=== PATIENT | female | born 1975 | race Caucasian/White ===

== ENCOUNTER 2016-11-12 00:20 | Emergency (ER) | payer SELFPAY ==
[~2016-11-12] VITALS: Ht 165.1 cm; Wt 111.6 kg
[~2016-11-12 00:20] MED LIST: ALBUTEROL SUL0.083 % IN; DOXYCYCL HYC100 MG PO; FLEXERIL PO; LORTAB 5/3255 MG PO; MEDDOSEPAK PO; PROVENTIL0.083 % IN; ULTRAM50 M1 PO; ULTRAM50 MG PO; VENTOLIN HFA IN; ZITHROMAX250 MG PO; ZPAK PO; [UNRECOGNIZED DRUG - OTHER] TOP; no home meds
[2016-11-12 01:32] LABS: HEMOGLOBIN 14.1 g/dl (12.0-16.0); IMMATURE GRANULOCYTES 0.5 % (0.0-1.0); MEAN CELL VOLUME 76.5 fL CALC (80.0-100.0); MEAN CORPUSCULAR HGB CONC 31.3 g/L CALC (32.0-36.0); NEUT# 9.23 thou/uL (2.00-7.15); RED BLOOD COUNT 5.88 mill/uL (4.20-5.60); RED CELL DISTRI WIDTH 16.2 % (11.5-15.5)
[2016-11-12 01:33] LABS: URINE BILIRUBIN - DIPSTICK NEGATIVE (NEGATIVE); URINE BLOOD DIPSTICK NEGATIVE (NEGATIVE); URINE CLARITY CLEAR; URINE COLOR YELLOW; URINE GLUCOSE - DIPSTICK NEGATIVE (NEGATIVE); URINE KETONE TRACE mg/dL (NEGATIVE); URINE LEUK ESTERASE NEGATIVE (NEGATIVE); URINE NITRITE - DIPSTICK NEGATIVE (Negative); URINE PROTEIN - DIPSTICK TRACE mg/dL (NEG-TRACE); URINE SPECIFIC GRAVITY >=1.030; URINE UROBILINOGEN - DIPSTICK 0.2 E.U./dL (0.2)
[2016-11-12 01:48] LABS: ALBUMIN 4.7 g/dL (3.2-5.0); ALKALINE PHOSPHATASE 94 u/l (38-126); AMYLASE 31 u/l (30-110); ANION GAP 17 (6-22 (CALC)); BILIRUBIN, TOTAL 0.4 mg/dL (0.0-1.4); BUN 6 mg/dL (7-17); BUN/CREATININE RATIO 8 (12-20 (CALC)); CARBON DIOXIDE 28 mmol/l (22-30); CHLORIDE 101 mmol/l (95-108); CREATININE 0.8 mg/dL (0.5-1.0); GFR > 60 ML/MIN (>=60 (CALC)); GFR FOR AFR.AMER. > 60 ML/MIN (>=60 (CALC)); GLUCOSE 92 mg/dL (65-105); LIPASE 55 u/l (23-300); POTASSIUM 3.9 mmol/l (3.5-5.1); SGOT/AST 29 u/l (14-36); SGPT/ALT 35 u/l (9-52); SODIUM 142 mmol/l (137-146); TOTAL PROTEIN 7.9 g/dL (6.3-8.2)
[2016-11-12] MEDS ORDERED: ZOFRAN ODT4 MG PO (03:05)
[2016-11-12] MEDS ORDERED: CLARITHROMYC500 M2 PO (03:05)
[2016-11-12] MEDS ORDERED: METRONIDAZOL500 MG PO (03:05)
[2016-11-12] MEDS ORDERED: PREVACID30 M2 PO (03:05)
[2016-11-12 03:50] VITALS: BP 112/74
== END 2016-11-12 03:54 | disposition home or self-care (01) | DRG 392 ==
LOC: ED 00:20
PROVIDERS: Emergency Medicine
DX: R10.13 Epigastric pain (principal); E66.01 Morbid (severe) obesity due to excess calories; K27.9 Peptic ulcer, site unspecified, unspecified as acute or chronic, without hemorrhage or perforation; K52.9 Noninfective gastroenteritis and colitis, unspecified; J44.9 Chronic obstructive pulmonary disease, unspecified; F17.210 Nicotine dependence, cigarettes, uncomplicated
CPT/HCPCS: J1956; Q9967; S0164

== ENCOUNTER 2017-03-01 15:20 | Emergency (ER) | payer SELFPAY ==
[~2017-03-01] VITALS: Ht 165.1 cm; Wt 105.0 kg
[~2017-03-01 15:20] MED LIST changes: +CLARITHROMYC500 M2 PO; +METRONIDAZOL500 MG PO; +PREVACID30 M2 PO; +ZOFRAN ODT4 MG PO
[2017-03-01] MEDS ORDERED: PREDNISONE50 MG PO (15:44)
[2017-03-01] MEDS ORDERED: ZITHROMAX250 MG PO (15:44)
[2017-03-01] MEDS ORDERED: TESSALON PER100 MG PO (15:44)
[2017-03-01] MEDS ORDERED: VENTOLIN HFA IN (15:44)
[2017-03-01 16:03] VITALS: BP 154/93
== END 2017-03-01 16:09 | disposition home or self-care (01) | DRG 192 ==
LOC: ED 15:20
DX: J44.9 Chronic obstructive pulmonary disease, unspecified (principal); E66.01 Morbid (severe) obesity due to excess calories; E27.9 Disorder of adrenal gland, unspecified; F17.210 Nicotine dependence, cigarettes, uncomplicated

== ENCOUNTER 2017-09-21 00:44 | Emergency (ER) | payer SELFPAY ==
[~2017-09-21] VITALS: Ht 165.1 cm; Wt 113.0 kg
[~2017-09-21 00:44] MED LIST changes: +PREDNISONE50 MG PO; +TESSALON PER100 MG PO
[2017-09-21 01:27] LABS: INFLUENZA A NONE DETECTED (NONE DETECT); INFLUENZA B NONE DETECTED (NONE DETECT)
[2017-09-21 04:41] VITALS: BP 152/86
== END 2017-09-21 04:35 | disposition home or self-care (01) | DRG 203 ==
LOC: ED 00:44
PROVIDERS: Emergency Medicine
DX: J40 Bronchitis, not specified as acute or chronic (principal); F17.210 Nicotine dependence, cigarettes, uncomplicated; R05 Cough; R09.89 Other specified symptoms and signs involving the circulatory and respiratory systems

== ENCOUNTER 2018-06-30 17:05 | Emergency (ER) | payer SELFPAY ==
[~2018-06-30] VITALS: Ht 165.1 cm; Wt 105.0 kg
[2018-06-30 18:22] VITALS: BP 148/95
[2018-06-30] MEDS ORDERED: PREDNISONE20 MG PO (18:36)
== END 2018-06-30 18:45 | disposition home or self-care (01) | DRG 918 ==
LOC: ED 17:05
DX: T63.481A Toxic effect of venom of other arthropod, accidental (unintentional), initial encounter (principal); R22.0 Localized swelling, mass and lump, head; F17.210 Nicotine dependence, cigarettes, uncomplicated

== ENCOUNTER 2019-07-02 | Emergency (ER) | payer OTHER ==
[~2019-07-02] MED LIST changes: +PREDNISONE20 MG PO
[2019-07-02 12:26] LABS: GFR > 60 ML/MIN (>=60 (CALC)); GFR FOR AFR.AMER. > 60 ML/MIN (>=60 (CALC))
[2019-07-02 13:48] LABS: HEMATOCRIT 41.5 % (37.0-47.0); HEMOGLOBIN 12.9 g/dl (12.0-16.0); IMMATURE GRANULOCYTES 0.5 % (0.0-5.0); MEAN CELL VOLUME 74.9 fL CALC (80.0-100.0); MEAN CORPUSCULAR HGB 23.3 pG CALC (26.0-32.0); MEAN CORPUSCULAR HGB CONC 31.1 g/L CALC (32.0-36.0); NEUT# 9.72 thou/uL (2.00-7.15); RED BLOOD COUNT 5.54 mill/uL (4.20-5.60); RED CELL DISTRI WIDTH 15.9 % (11.5-15.5)
[2019-07-02 14:06] LABS: ALKALINE PHOSPHATASE 103 u/l (38-126); ANION GAP 12 (6-22 (CALC)); BILIRUBIN, TOTAL 0.3 mg/dL (0.0-1.4); BUN 10 mg/dL (7-17); BUN/CREATININE RATIO 17 (12-20 (CALC)); CARBON DIOXIDE 25 mmol/l (22-30); CHLORIDE 103 mmol/l (95-108); CREATININE 0.6 mg/dL (0.5-1.0); GFR > 60 ML/MIN (>=60 (CALC)); GFR FOR AFR.AMER. > 60 ML/MIN (>=60 (CALC)); POTASSIUM 4.1 mmol/l (3.5-5.1); SGOT/AST 27 u/l (14-36); SODIUM 135 mmol/l (137-146); TOTAL PROTEIN 7.4 g/dL (6.3-8.2)
[2019-07-02 14:51] LABS: URINE BILIRUBIN - DIPSTICK NEGATIVE (NEGATIVE); URINE BLOOD DIPSTICK NEGATIVE (NEGATIVE); URINE COLOR YELLOW; URINE GLUCOSE - DIPSTICK NEGATIVE (NEGATIVE); URINE KETONE NEGATIVE (NEGATIVE); URINE LEUK ESTERASE NEGATIVE (NEGATIVE); URINE NITRITE - DIPSTICK NEGATIVE (Negative); URINE PROTEIN - DIPSTICK NEGATIVE (NEG-TRACE); URINE UROBILINOGEN - DIPSTICK 0.2 E.U./dL (0.2)
== END 2019-07-02 14:37 | disposition home or self-care (01) | DRG 605 ==
PROVIDERS: Family Medicine
DX: S40.812A Abrasion of left upper arm, initial encounter (principal); R10.32 Left lower quadrant pain; M54.5 Low back pain; F17.210 Nicotine dependence, cigarettes, uncomplicated; M25.552 Pain in left hip; V89.2XXA Person injured in unspecified motor-vehicle accident, traffic, initial encounter
CPT/HCPCS: Q9967

== ENCOUNTER 2021-03-16 17:00 | Emergency (ER) | payer BC ==
[~2021-03-16] VITALS: Ht 165.1 cm; Wt 160.0 kg
[2021-03-16 17:45] LABS: IMMATURE GRANULOCYTES 0.5 % (0.0-5.0); MEAN CORPUSCULAR HGB 26.5 pG CALC (26.0-32.0); MEAN CORPUSCULAR HGB CONC 33.1 g/dL CAL (32.0-36.0); NEUT# 3.24 thou/uL (2.00-7.15); RED BLOOD COUNT 3.47 mill/uL (4.20-5.60); RED CELL DISTRI WIDTH 21.9 % (11.5-15.5)
[2021-03-16 17:47] LABS: HEMATOCRIT 27.8 % (37.0-47.0); HEMOGLOBIN 9.2 g/dl (12.0-16.0); MEAN CELL VOLUME 80.1 fL CALC (80.0-100.0)
[2021-03-16 17:57] LABS: ALBUMIN 4.1 g/dL (3.2-5.0); ALKALINE PHOSPHATASE 89 u/l (38-126); AMYLASE 52 u/l (30-110); BUN 7 mg/dL (7-17); BUN/CREATININE RATIO 9 (12-20 (CALC)); CARBON DIOXIDE 26 mmol/l (22-30); CHLORIDE 101 mmol/l (95-108); CREATININE 0.7 mg/dL (0.5-1.0); GFR > 60 ML/MIN (>=60 (CALC)); GFR FOR AFR.AMER. > 60 ML/MIN (>=60 (CALC)); LIPASE 58 u/l (23-300); SGOT/AST 25 u/l (14-36); SODIUM 135 mmol/l (137-146); TOTAL PROTEIN 7.2 g/dL (6.3-8.2)
[2021-03-16 18:00] LABS: ANION GAP 11 (6-22 (CALC)); BILIRUBIN, TOTAL 0.6 mg/dL (0.0-1.4); POTASSIUM 3.1 mmol/l (3.5-5.1)
[2021-03-16 18:01] LABS: D-DIMER 1.49 mg/L (0.19-0.60)
[2021-03-16 18:08] LABS: MYOGLOBIN 30 ng/mL (0 - 62)
[2021-03-16 18:09] LABS: ACT PARTIAL THROMBO TIME 20.2 SECONDS (20.0-32.5); INTERNATIONAL NORMALIZED RATIO 0.9 RATIO (0.7-1.3); PROTHROMBIN TIME 9.9 SECONDS (9.0-12.5)
[2021-03-16 18:52] LABS: URINE BILIRUBIN - DIPSTICK NEGATIVE (NEGATIVE); URINE BLOOD DIPSTICK SMALL (NEGATIVE); URINE COLOR YELLOW; URINE GLUCOSE - DIPSTICK NEGATIVE (NEGATIVE); URINE KETONE NEGATIVE (NEGATIVE); URINE PROTEIN - DIPSTICK 30 mg/dL (NEG-TRACE); URINE UROBILINOGEN - DIPSTICK 0.2 E.U./dL (0.2)
[2021-03-16 18:54] LABS: URINE LEUK ESTERASE MODERATE (NEGATIVE); URINE NITRITE - DIPSTICK NEGATIVE (Negative)
[2021-03-16 19:02] LABS: URINE SQUAMOUS EPITHELIAL CELL FEW EPI/hpf (0-FEW); URINE WBC 20-50 WBC/hpf (0-5)
[2021-03-16 22:15] VITALS: BP 166/95
--- NOTE | 2021-03-18 08:15 | NUR ---
FINAL URINE CULTURE RESULTS SENT TO JOSY RUST AT [facility] FAX: [phone]
== END 2021-03-16 22:17 | disposition short-term general hospital (02) | DRG 313 ==
LOC: ED 17:00
DX: R07.9 Chest pain, unspecified (principal); N39.0 Urinary tract infection, site not specified; R79.89 Other specified abnormal findings of blood chemistry; E87.6 Hypokalemia; C51.9 Malignant neoplasm of vulva, unspecified; F17.200 Nicotine dependence, unspecified, uncomplicated; B96.1 Klebsiella pneumoniae [K. pneumoniae] as the cause of diseases classified elsewhere; Z95.828 Presence of other vascular implants and grafts; Z20.822 Contact with and (suspected) exposure to COVID-19
CPT/HCPCS: Q9967

== ENCOUNTER 2022-03-11 13:14 | Emergency (ER) | payer BC ==
[~2022-03-11] VITALS: Ht 165.1 cm; Wt 105.0 kg
[2022-03-11 13:29] VITALS: BP 144/98
[2022-03-11 14:01] VITALS: BP 114/65
[2022-03-11 14:33] VITALS: BP 130/77
[2022-03-11] MEDS ORDERED: BENADRYL25 M1 PO (14:44)
[2022-03-11] MEDS ORDERED: PREDNISONE20 MG PO (14:44)
[2022-03-11] MEDS ORDERED: EPIPEN 2-P0.3 MG/0.3 IM (14:44)
[2022-03-11 14:46] VITALS: BP 130/77
== END 2022-03-11 14:56 | disposition home or self-care (01) | DRG 607 ==
LOC: ED 13:14
DX: L50.0 Allergic urticaria (principal); F17.200 Nicotine dependence, unspecified, uncomplicated; Z85.44 Personal history of malignant neoplasm of other female genital organs; Z92.3 Personal history of irradiation; Z92.21 Personal history of antineoplastic chemotherapy; Z88.8 Allergy status to other drugs, medicaments and biological substances

== ENCOUNTER 2022-05-18 20:25 | Emergency (ER) | payer BC ==
[~2022-05-18] VITALS: Ht 165.1 cm; Wt 109.0 kg
[~2022-05-18 20:25] MED LIST changes: +BENADRYL25 M1 PO; +EPIPEN 2-P0.3 MG/0.3 IM
[2022-05-18 21:26] VITALS: BP 125/87
[2022-05-18 21:31] VITALS: BP 144/83
[2022-05-18 21:46] VITALS: BP 126/73
[2022-05-18 21:52] LABS: IMMATURE GRANULOCYTES 0.3 % (0.0-5.0); MEAN CELL VOLUME 79.9 fL CALC (80.0-100.0); MEAN CORPUSCULAR HGB 25.6 pG CALC (26.0-32.0); NEUT# 6.71 thou/uL (2.00-7.15); RED BLOOD COUNT 4.38 mill/uL (4.20-5.60); RED CELL DISTRI WIDTH 15.6 % (11.5-15.5)
[2022-05-18 21:53] LABS: HEMOGLOBIN 11.2 g/dl (12.0-16.0)
[2022-05-18 22:01] LABS: HCG SERUM/URINE (NEG/POS) NEGATIVE (NEGATIVE)
[2022-05-18 22:04] LABS: ALBUMIN 4.3 g/dL (3.2-5.0); ALKALINE PHOSPHATASE 88 u/l (38-126); BUN 12 mg/dL (7-17); BUN/CREATININE RATIO 14 (12-20 (CALC)); CARBON DIOXIDE 30 mmol/l (22-30); CHLORIDE 104 mmol/l (95-108); CREATININE 0.9 mg/dL (0.5-1.0); GFR FOR AFR.AMER. > 60 ML/MIN (>=60 (CALC)); GFR OTHER RACES > 60 ML/MIN (>=60 (CALC)); SGOT/AST 27 u/l (14-36); TOTAL PROTEIN 6.9 g/dL (6.3-8.2)
[2022-05-18 22:05] LABS: ANION GAP 13 (6-22 (CALC)); BILIRUBIN, TOTAL 0.1 mg/dL (0.0-1.4); POTASSIUM 3.8 mmol/l (3.5-5.1); SODIUM 143 mmol/l (137-146)
[2022-05-18 22:38] LABS: URINE BILIRUBIN - DIPSTICK NEGATIVE (NEGATIVE); URINE BLOOD DIPSTICK NEGATIVE (NEGATIVE); URINE COLOR YELLOW; URINE GLUCOSE - DIPSTICK NEGATIVE (NEGATIVE); URINE KETONE NEGATIVE (NEGATIVE); URINE LEUK ESTERASE NEGATIVE (NEGATIVE); URINE PROTEIN - DIPSTICK NEGATIVE (NEG-TRACE); URINE SPECIFIC GRAVITY >=1.030; URINE UROBILINOGEN - DIPSTICK 0.2 E.U./dL (0.2)
[2022-05-18 22:39] LABS: URINE NITRITE - DIPSTICK NEGATIVE (Negative)
[2022-05-18 23:37] VITALS: BP 126/73
== END 2022-05-18 23:49 | disposition home or self-care (01) | DRG 103 ==
LOC: ED 20:25
PROVIDERS: Family Medicine
DX: R51.9 Headache, unspecified (principal); Z85.44 Personal history of malignant neoplasm of other female genital organs; Z20.822 Contact with and (suspected) exposure to COVID-19

== ENCOUNTER 2022-06-12 13:43 | Emergency (ER) | payer SELFPAY ==
[~2022-06-12] VITALS: Ht 165.1 cm; Wt 105.0 kg
[2022-06-12 15:53] VITALS: BP 132/86
[2022-06-12 16:01] VITALS: BP 127/76
[2022-06-12 16:15] VITALS: BP 137/95
[2022-06-12 16:30] VITALS: BP 107/72
[2022-06-12 16:45] VITALS: BP 113/76
[2022-06-12] MEDS ORDERED: METHOCARBAMOL500 MG PO (18:27)
[2022-06-12] MEDS ORDERED: MEDDOSEPAK PO (18:27)
[2022-06-12] MEDS ORDERED: ZPAK PO (18:27)
[2022-06-12 18:31] VITALS: BP 113/76
== END 2022-06-12 18:39 | disposition home or self-care (01) | DRG 203 ==
LOC: ED 13:43
DX: J40 Bronchitis, not specified as acute or chronic (principal)

== ENCOUNTER 2022-06-20 06:41 | Emergency (ER) | payer SELFPAY ==
[~2022-06-20] VITALS: Ht 165.1 cm; Wt 104.0 kg
[~2022-06-20 06:41] MED LIST changes: +METHOCARBAMOL500 MG PO
[2022-06-20 08:37] LABS: BASO% 0.4 % (0-3); EOS% 3.4 % (0-8); HEMATOCRIT 39.9 % (37.0-47.0); HEMOGLOBIN 12.8 g/dl (12.0-16.0); IMMATURE GRANULOCYTES 0.5 % (0.0-5.0); LYMPH% 26.2 % (15-41); MEAN CELL VOLUME 80.1 fL CALC (80.0-100.0); MEAN CORPUSCULAR HGB 25.7 pG CALC (26.0-32.0); MEAN CORPUSCULAR HGB CONC 32.1 g/dL CAL (32.0-36.0); MONO% 9.3 % (2-13); NEUT# 4.49 thou/uL (2.00-7.15); NEUT% 60.2 % (42-76); RED BLOOD COUNT 4.98 mill/uL (4.20-5.60)
[2022-06-20 08:45] LABS: ALBUMIN 4.1 g/dL (3.2-5.0); ALKALINE PHOSPHATASE 97 u/l (38-126); ANION GAP 10 (6-22 (CALC)); BUN 13 mg/dL (7-17); BUN/CREATININE RATIO 15 (12-20 (CALC)); CARBON DIOXIDE 30 mmol/l (22-30); CHLORIDE 105 mmol/l (95-108); CREATININE 0.8 mg/dL (0.5-1.0); GFR FOR AFR.AMER. > 60 ML/MIN (>=60 (CALC)); GFR OTHER RACES > 60 ML/MIN (>=60 (CALC)); SGOT/AST 25 u/l (14-36); SODIUM 140 mmol/l (137-146); TOTAL PROTEIN 7.1 g/dL (6.3-8.2)
[2022-06-20 08:52] LABS: BILIRUBIN, TOTAL 0.2 mg/dL (0.0-1.4)
[2022-06-20] MEDS ORDERED: PROVENTIL HFA IN (09:23)
[2022-06-20] MEDS ORDERED: DOXY-CAPS100 MG PO (09:23)
[2022-06-20] MEDS ORDERED: PREDNISONE50 MG PO (09:23)
[2022-06-20 09:35] VITALS: BP 127/86
== END 2022-06-20 09:48 | disposition home or self-care (01) | DRG 203 ==
LOC: ED 06:41
PROVIDERS: Family Medicine
DX: J40 Bronchitis, not specified as acute or chronic (principal); J06.9 Acute upper respiratory infection, unspecified

== ENCOUNTER 2022-07-03 15:32 | Emergency (ER) | payer SELFPAY ==
[~2022-07-03] VITALS: Ht 165.1 cm; Wt 104.6 kg
[~2022-07-03 15:32] MED LIST changes: +DOXY-CAPS100 MG PO; +PROVENTIL HFA IN
[2022-07-03 17:21] VITALS: BP 148/97
[2022-07-03 17:31] VITALS: BP 100/81
[2022-07-03 17:45] VITALS: BP 112/86
[2022-07-03 18:16] VITALS: BP 131/80
[2022-07-03 18:23] LABS: BASO% 0.3 % (0-3); EOS% 2.3 % (0-8); HEMATOCRIT 38.7 % (37.0-47.0); HEMOGLOBIN 12.2 g/dl (12.0-16.0); IMMATURE GRANULOCYTES 0.3 % (0.0-5.0); LYMPH% 20.5 % (15-41); MEAN CELL VOLUME 81.8 fL CALC (80.0-100.0); MEAN CORPUSCULAR HGB 25.8 pG CALC (26.0-32.0); MEAN CORPUSCULAR HGB CONC 31.5 g/dL CAL (32.0-36.0); MONO% 6.7 % (2-13); NEUT# 6.54 thou/uL (2.00-7.15); NEUT% 69.9 % (42-76); RED BLOOD COUNT 4.73 mill/uL (4.20-5.60); RED CELL DISTRI WIDTH 15.7 % (11.5-15.5)
[2022-07-03 18:31] VITALS: BP 133/87
[2022-07-03 18:46] VITALS: BP 140/99
[2022-07-03 18:48] LABS: ALBUMIN 4.4 g/dL (3.2-5.0); ALKALINE PHOSPHATASE 85 u/l (38-126); ANION GAP 9 (6-22 (CALC)); BUN 14 mg/dL (7-17); BUN/CREATININE RATIO 20 (12-20 (CALC)); CARBON DIOXIDE 31 mmol/l (22-30); CHLORIDE 106 mmol/l (95-108); CREATININE 0.7 mg/dL (0.5-1.0); GFR FOR AFR.AMER. > 60 ML/MIN (>=60 (CALC)); GFR OTHER RACES > 60 ML/MIN (>=60 (CALC)); SGOT/AST 32 u/l (14-36); SODIUM 142 mmol/l (137-146); TOTAL PROTEIN 7.3 g/dL (6.3-8.2)
[2022-07-03 18:55] LABS: BILIRUBIN, TOTAL 0.3 mg/dL (0.0-1.4)
[2022-07-03] MEDS ORDERED: LEVOCETIRIZINE D5 MG PO (19:37)
[2022-07-03] MEDS ORDERED: PREDNISONE10 MG PO (19:37)
[2022-07-03] MEDS ORDERED: FLONASE AL50 MCG/ACT (19:37)
== END 2022-07-03 20:00 | disposition home or self-care (01) | DRG 153 ==
LOC: ED 15:32
PROVIDERS: Nurse Practitioner
DX: J06.9 Acute upper respiratory infection, unspecified (principal); J45.909 Unspecified asthma, uncomplicated

== ENCOUNTER 2022-08-28 07:37 | Observation (INO) | payer SELFPAY ==
[2022-08-28] VITALS (10 sets, daily range): BP systolic 109–156; BP diastolic 66–90
[~2022-08-28] VITALS: Ht 165.1 cm; Wt 108.0 kg
[~2022-08-28 07:37] MED LIST changes: +FLONASE AL50 MCG/ACT; +LEVOCETIRIZINE D5 MG PO; +PREDNISONE10 MG PO
[2022-08-28 08:04] LABS: BASO% 0.6 % (0-3); EOS% 3.4 % (0-8); HEMATOCRIT 39.9 % (37.0-47.0); HEMOGLOBIN 12.4 g/dl (12.0-16.0); IMMATURE GRANULOCYTES 0.4 % (0.0-5.0); LYMPH% 20.8 % (15-41); MEAN CELL VOLUME 79.6 fL CALC (80.0-100.0); MEAN CORPUSCULAR HGB 24.8 pG CALC (26.0-32.0); MEAN CORPUSCULAR HGB CONC 31.1 g/dL CAL (32.0-36.0); MONO% 8.2 % (2-13); NEUT# 6.36 thou/uL (2.00-7.15); NEUT% 66.6 % (42-76); RED BLOOD COUNT 5.01 mill/uL (4.20-5.60); RED CELL DISTRI WIDTH 15.2 % (11.5-15.5)
[2022-08-28 08:08] LABS: PROTHROMBIN TIME 9.7 SECONDS (9.0-12.5)
[2022-08-28 08:11] LABS: ALBUMIN 4.4 g/dL (3.2-5.0); ALKALINE PHOSPHATASE 87 u/l (38-126); ANION GAP 12 (6-22 (CALC)); BUN 13 mg/dL (7-17); BUN/CREATININE RATIO 17 (12-20 (CALC)); CARBON DIOXIDE 25 mmol/l (22-30); CHLORIDE 105 mmol/l (95-108); CREATININE 0.8 mg/dL (0.5-1.0); GFR FOR AFR.AMER. > 60 ML/MIN (>=60 (CALC)); GFR OTHER RACES > 60 ML/MIN (>=60 (CALC)); POTASSIUM 3.8 mmol/l (3.5-5.1); SGOT/AST 26 u/l (14-36); SODIUM 139 mmol/l (137-146); TOTAL PROTEIN 7.4 g/dL (6.3-8.2)
[2022-08-29] VITALS: BP 122/71
[2022-08-29 03:18] VITALS: BP 122/59
[2022-08-29 05:22] LABS: BASO% 0.7 % (0-3); EOS% 4.1 % (0-8); HEMATOCRIT 38.2 % (37.0-47.0); HEMOGLOBIN 11.9 g/dl (12.0-16.0); IMMATURE GRANULOCYTES 0.7 % (0.0-5.0); LYMPH% 27.3 % (15-41); MEAN CELL VOLUME 79.3 fL CALC (80.0-100.0); MEAN CORPUSCULAR HGB 24.7 pG CALC (26.0-32.0); MEAN CORPUSCULAR HGB CONC 31.2 g/dL CAL (32.0-36.0); MONO% 7.2 % (2-13); NEUT# 4.08 thou/uL (2.00-7.15); RED BLOOD COUNT 4.82 mill/uL (4.20-5.60); RED CELL DISTRI WIDTH 15.2 % (11.5-15.5)
[2022-08-29 05:52] LABS: ALBUMIN 3.9 g/dL (3.2-5.0); ALKALINE PHOSPHATASE 81 u/l (38-126); ANION GAP 10 (6-22 (CALC)); BUN 13 mg/dL (7-17); BUN/CREATININE RATIO 15 (12-20 (CALC)); CALCULATED LDLCHOLESTEROL 91 mg/dL (62-129 (CALC)); CARBON DIOXIDE 28 mmol/l (22-30); CHLORIDE 106 mmol/l (95-108); CHOLESTEROL HDL RATIO 4.6 (<4.4 (CALC)); CREATININE 0.9 mg/dL (0.5-1.0); GFR FOR AFR.AMER. > 60 ML/MIN (>=60 (CALC)); GFR OTHER RACES > 60 ML/MIN (>=60 (CALC)); HDL CHOLESTEROL 36 mg/dL (39.0-59.0); POTASSIUM 4.1 mmol/l (3.5-5.1); SGOT/AST 23 u/l (14-36); SODIUM 140 mmol/l (137-146); TOTAL CHOLESTEROL 166 mg/dl (0-199); TOTAL PROTEIN 6.9 g/dL (6.3-8.2); TOTAL TRIGLYCERIDES 191 mg/dl (0-149); VLDL CHOLESTROL 38 mg/dl (1-41 (CALC))
[2022-08-29 06:01] VITALS: BP 130/57
[2022-08-29 10:18] VITALS: BP 123/63
[2022-08-29] MEDS ORDERED: ATORVASTATIN CA40 MG PO (12:22)
[2022-08-29] MEDS ORDERED: PLAVIX75 MG PO (12:22)
[2022-08-29] MEDS ORDERED: ADLT ASA LOW81 MG PO (12:23)
== END 2022-08-29 15:25 | disposition home or self-care (01) | DRG 69 ==
LOC: ED 07:37 → ED-I 09:15 → ED 09:35 → MS2 09:36
PROVIDERS: Family Medicine; Nurse Practitioner Family; ADMIT Internal Medicine; ATTEND Internal Medicine
DX: G45.9 Transient cerebral ischemic attack, unspecified (principal); E66.9 Obesity, unspecified; F17.210 Nicotine dependence, cigarettes, uncomplicated; F17.290 Nicotine dependence, other tobacco product, uncomplicated; Z85.44 Personal history of malignant neoplasm of other female genital organs; Z92.21 Personal history of antineoplastic chemotherapy; Z92.3 Personal history of irradiation
CPT/HCPCS: G0378; Q9967

== ENCOUNTER 2022-09-05 21:41 | Emergency (ER) | payer SELFPAY ==
[~2022-09-05] VITALS: Ht 165.1 cm; Wt 110.0 kg
[~2022-09-05 21:41] MED LIST changes: +ADLT ASA LOW81 MG PO; +ATORVASTATIN CA40 MG PO; +PLAVIX75 MG PO
[2022-09-05] MEDS ORDERED: VIBRAMYCIN100 M2 PO (23:55)
[2022-09-06 00:33] VITALS: BP 142/84
== END 2022-09-06 00:33 | disposition home or self-care (01) | DRG 603 ==
LOC: ED 21:41
DX: L03.221 Cellulitis of neck (principal); F17.200 Nicotine dependence, unspecified, uncomplicated

== ENCOUNTER 2023-01-20 20:25 | Emergency (ER) | payer BC ==
[~2023-01-20] VITALS: Ht 165.1 cm; Wt 113.0 kg
[2023-01-20] VITALS (9 sets, daily range): BP systolic 119–152; BP diastolic 65–108
[~2023-01-20 20:25] MED LIST changes: +VIBRAMYCIN100 M2 PO
[2023-01-20 22:06] LABS: BASO% 0.3 % (0-3); EOS% 1.1 % (0-8); HEMOGLOBIN 12.5 g/dl (12.0-16.0); IMMATURE GRANULOCYTES 0.3 % (0.0-5.0); LYMPH% 9.2 % (15-41); MEAN CELL VOLUME 78.8 fL CALC (80.0-100.0); MEAN CORPUSCULAR HGB 25.3 pG CALC (26.0-32.0); MEAN CORPUSCULAR HGB CONC 32.1 g/dL CAL (32.0-36.0); MONO% 6.4 % (2-13); NEUT# 9.48 thou/uL (2.00-7.15); NEUT% 82.7 % (42-76); RED BLOOD COUNT 4.95 mill/uL (4.20-5.60); RED CELL DISTRI WIDTH 15.5 % (11.5-15.5)
[2023-01-20 22:08] LABS: URINE BILIRUBIN - DIPSTICK NEGATIVE (NEGATIVE); URINE COLOR YELLOW; URINE GLUCOSE - DIPSTICK NEGATIVE (NEGATIVE); URINE KETONE NEGATIVE (NEGATIVE)
[2023-01-20 22:09] LABS: URINE BLOOD DIPSTICK NEGATIVE (NEGATIVE); URINE LEUK ESTERASE NEGATIVE (NEGATIVE); URINE NITRITE - DIPSTICK NEGATIVE (Negative); URINE PROTEIN - DIPSTICK NEGATIVE (NEG-TRACE); URINE SPECIFIC GRAVITY 1.015; URINE UROBILINOGEN - DIPSTICK 0.2 E.U./dL (0.2)
[2023-01-20 22:18] LABS: ALBUMIN 4.4 g/dL (3.2-5.0); ALKALINE PHOSPHATASE 103 u/l (38-126); ANION GAP 14 (6-22 (CALC)); BUN 17 mg/dL (7-17); BUN/CREATININE RATIO 18 (12-20 (CALC)); CARBON DIOXIDE 25 mmol/l (22-30); CHLORIDE 102 mmol/l (95-108); CREATININE 0.9 mg/dL (0.5-1.0); GFR FOR AFR.AMER. > 60 ML/MIN (>=60 (CALC)); GFR OTHER RACES > 60 ML/MIN (>=60 (CALC)); POTASSIUM 4.4 mmol/l (3.5-5.1); SGOT/AST 24 u/l (14-36); SODIUM 138 mmol/l (137-146); TOTAL PROTEIN 7.3 g/dL (6.3-8.2)
[2023-01-20 22:23] LABS: BILIRUBIN, TOTAL 0.3 mg/dL (0.02-1.3)
[2023-01-20] MEDS ORDERED: ROBITUSSIN200 MG/10 PO (23:29)
[2023-01-20] MEDS ORDERED: ZITHROMAX250 MG PO (23:29)
== END 2023-01-20 23:58 | disposition home or self-care (01) | DRG 153 ==
LOC: ED 20:25
PROVIDERS: Emergency Medicine
DX: J06.9 Acute upper respiratory infection, unspecified (principal); F17.210 Nicotine dependence, cigarettes, uncomplicated; Z20.822 Contact with and (suspected) exposure to COVID-19

== ENCOUNTER 2024-03-17 11:07 | Observation (INO) | payer OTHER ==
[~2024-03-17] VITALS: Ht 165.1 cm; Wt 116.2 kg
[2024-03-17] VITALS (16 sets, daily range): BP systolic 105–153; BP diastolic 57–89
[~2024-03-17 11:07] MED LIST changes: +FIBER ADULT GUM1 CHW PO; +ROBITUSSIN200 MG/10 PO; +TRAMADOL HCL50 MG PO
--- NOTE | 2024-03-17 11:30 | NUR ---
PT AND FAMILY IN [place] RM 4, PT DENIES ANY C/P AT THIS TIME. AT BEDSIDE FOR EVALUATION. 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
[2024-03-17 11:49] LABS: BASO% 0.4 % (0-3); EOS% 2.8 % (0-8); HEMATOCRIT 39.5 % (37.0-47.0); HEMOGLOBIN 12.1 g/dl (12.0-16.0); IMMATURE GRANULOCYTES 0.5 % (0.0-5.0); LYMPH% 17.1 % (15-41); MEAN CELL VOLUME 80.6 fL CALC (80.0-100.0); MEAN CORPUSCULAR HGB 24.7 pG CALC (26.0-32.0); MEAN CORPUSCULAR HGB CONC 30.6 g/dL CAL (32.0-36.0); MONO% 7.6 % (2-13); NEUT# 6.8 thou/uL (2.00-7.15); NEUT% 71.6 % (42-76); RED BLOOD COUNT 4.9 mill/uL (4.20-5.60); RED CELL DISTRI WIDTH 15.7 % (11.5-15.5)
[2024-03-17 12:05] LABS: ALKALINE PHOSPHATASE 101 u/l (38-126); ANION GAP 5 (6-22 (CALC)); BILIRUBIN, TOTAL 0.4 mg/dL (0.02-1.3); BUN 10 mg/dL (7-17); BUN/CREATININE RATIO 13 (12-20 (CALC)); CARBON DIOXIDE 28 mmol/l (22-30); CHLORIDE 110 mmol/l (95-108); CREATININE 0.8 mg/dL (0.5-1.0); ESTIMATED GFR 91 ML/MIN (>=90 (CALC)); POTASSIUM 4.1 mmol/l (3.5-5.1); SGOT/AST 27 u/l (14-36); SODIUM 140 mmol/l (137-146); TOTAL PROTEIN 6.5 g/dL (6.3-8.2)
--- NOTE | 2024-03-17 12:15 | NUR ---
PT RESTING WITH FAMILY AT BEDSIDE. PT DENIES C/P OR ANY COMPLAINT AT THIS TIME. PT REMAINS STABLE. PROVIDED BLANKET FOR WARMTH.
[2024-03-17 12:35] LABS: TSH, 3RD GENERATION 0.63 uIU/mL (0.47 - 4.68)
--- NOTE | 2024-03-17 13:00 | NUR ---
PT RESTING, REMAINS STABLE. MONITOR IN PLACE. DENIES ANY NEEDS AT THIS TIME. PLAN OF CARE DISCUSSED WITH PT AND FAMILY.
--- NOTE | 2024-03-17 13:16 | NUR ---
MD AT BEDSIDE, DETAILED PLAN OF CARE DISCUSSED WITH PT AND FAMILY. BOTH DENY QUESTIONS UPON COMPLETION.
--- NOTE | 2024-03-17 14:05 | NUR ---
PT REASSESSMENT COMPLETE. PT VERBALIZES UNDERSTAND OF PLAN OF CARE. DENIES QUESTIONS. PROVIDED WATER FOR HYDRATION.
--- NOTE | 2024-03-17 15:05 | NUR ---
PT CONTINUES TO IMPROVE. DENIES C/P OR SOB. 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 PROVIDED FLUIDS FOR HYDRATION.
[2024-03-17] MEDS ORDERED: CLOPIDOGREL BISULFATE 75 MG/TAB TAB PO ONE (15:55)
--- NOTE | 2024-03-17 16:10 | NUR ---
PT MEDICATED PER MD ORDER. PT TOLERATES WELL. PLAN OF CARE DISCUSSED WITH PT AND FAMILY. BOTH DENY QUESTIONS UPON COMPLETION.
[2024-03-17] MEDS ORDERED: SODIUM CHLORIDE 0.9% 1,000 ML IV PRN (16:30)
[2024-03-17] MEDS ORDERED: MAGNESIUM HYDROXIDE 30 ML UDC PO PRN (16:30)
[2024-03-17] MEDS ORDERED: NITROGLYCERIN 0.4 MG/TAB SL PRN (16:30)
[2024-03-17] MEDS ORDERED: MORPHINE SULFATE 4 MG/ML VIAL IV PRN (16:30)
--- NOTE | 2024-03-17 17:26 | NUR ---
CALLED REPORT TO DEL, DENIES QUSTION UPON COMPLETION.
--- NOTE | 2024-03-17 20:05 | NUR ---
REPORT RECEIVED FROM [facility] NURSE. DUNIA WHITE. PT RESTING IN BED, FAMILY AT BEDSIDE. NO S&S OF DISTRESS NOTED. PT IS A&OX3, AND ABLE TO MAKE NEEDS KNOWN. PT IS ON ROOM AIR. TELE MONITOR IN PLACE. PT DENEIS ANY CHEST PAIN OR SHORTNESS OF BREATH. NO N/V NOTED. PT STATES THAT HER LAST BM WAS TODAY 03-17-2024, STATES THAT IT WAS LOOSE. NO STOOL NOTED BY FERRYBOAT OPERATOR HELPER. LUNG SOUNDS CLEAR UPON AUSCULTATION. BOWEL SOUNDS ACTIVE X4 QUADRANTS, ABDOMEN IS DISTENDED SOFT. PERIPHERAL PULSES WEAK. GAYLE HOSE APPLIED TO BLE. TRACE EDEMA NOTED TO BILATERAL ANKLES. NO COMPLAINTS OFFERED AT THIS TIME. INFUSION GOING PER ORDERS. BLOOD GLUCOSE AT THIS TIME IS 154. PT EDUCATED ON POC AND MEDICATION SCHEDULE. CALL LIGHT IN REACH, AND SAFETY PRECAUTIONS IN PLACE.
[2024-03-17] MEDS ORDERED: METOPROLOL TARTRATE 25 MG/TAB PO SCH (21:00)
[2024-03-17] MEDS ORDERED: ENOXAPARIN SODIUM 40 MG/0.4 ML SYR SC SCH (21:00)
[2024-03-17] MEDS ORDERED: ATORVASTATIN CALCIUM 40 MG/TAB PO SCH (21:00)
--- NOTE | 2024-03-18 00:15 | NUR ---
PT RESTING IN BED ON TELEPHONE. PT APPEARS COMFORTABLE. NO S&S OF DISTRESS NOTED. INFUSION GOING PER ORDERS. NO COMPLAINTS OFFERED. CALL LIGHT IN REACH, AND SAFETY PRECAUTIONS IN PLACE.
[2024-03-18 00:41] VITALS: BP 127/63
--- NOTE | 2024-03-18 04:00 | NUR ---
PT RESTING IN BED WATCHING TELEVISION. IV INFUSION GOING PER ORDERS. NO COMPLAITNS OFFERED AT THIS TIME. RESPIRATIONS ARE EVEN AND UNLABORED. TELE MONIOTR IN PLACE. CALL LIGHT IN REACH, AND SAFETY PRECAUTIONS IN PLACE.
[2024-03-18 04:12] VITALS: BP 117/62
[2024-03-18 05:50] LABS: ALBUMIN 3.5 g/dL (3.2-5.0); BILIRUBIN, TOTAL 0.3 mg/dL (0.02-1.3); CHOLESTEROL HDL RATIO 3.9 (<4.4 (CALC)); CREATININE 0.9 mg/dL (0.5-1.0); MAGNESIUM 2.2 mg/dL (1.6-2.3); POTASSIUM 3.9 mmol/l (3.5-5.1); TOTAL PROTEIN 5.9 g/dL (6.3-8.2)
[2024-03-18 05:56] LABS: BASO% 0.5 % (0-3); EOS% 3.5 % (0-8); HEMATOCRIT 36.5 % (37.0-47.0); HEMOGLOBIN 11.3 g/dl (12.0-16.0); IMMATURE GRANULOCYTES 0.5 % (0.0-5.0); LYMPH% 24.4 % (15-41); MEAN CELL VOLUME 80.8 fL CALC (80.0-100.0); MONO% 8.5 % (2-13); NEUT# 5.26 thou/uL (2.00-7.15); NEUT% 62.6 % (42-76); RED BLOOD COUNT 4.52 mill/uL (4.20-5.60); RED CELL DISTRI WIDTH 15.6 % (11.5-15.5)
[2024-03-18 06:30] VITALS: BP 127/75
--- NOTE | 2024-03-18 07:00 | NUR ---
RECEIVED BEDSIDE REPORT FROM CINDY SHELBY. PT LYING IN BED WITH EYES CLOSED, NO DISTRESS NOTED. ALL SAFETY MEASURES IN PLACE AND FUNCTIONING PROPERLY. VSS. NO NEEDS AT THIS TIME.
[2024-03-18] MEDS ORDERED: CLOPIDOGREL BISULFATE 75 MG/TAB TAB PO SCH (09:00)
--- NOTE | 2024-03-18 09:46 | NUR ---
called dr chavez office spoke to enrrique and gave information regarding this consultation for chest pain r/o acs stated she will give him the consulation when he comes out of a room.
== END 2024-03-18 14:20 | disposition home or self-care (01) | DRG 313 ==
LOC: ED 11:07 → ED-I 15:45 → ED 16:01 → MS2 16:02
PROVIDERS: Family Medicine; ADMIT Student in an Organized Health Care Education/Training Program; ATTEND Student in an Organized Health Care Education/Training Program
DX: R07.9 Chest pain, unspecified (principal); R00.2 Palpitations; E11.9 Type 2 diabetes mellitus without complications; E03.9 Hypothyroidism, unspecified; F17.210 Nicotine dependence, cigarettes, uncomplicated; Z68.41 Body mass index [BMI] 40.0-44.9, adult; E66.9 Obesity, unspecified; Z92.3 Personal history of irradiation; Z92.21 Personal history of antineoplastic chemotherapy; Z85.44 Personal history of malignant neoplasm of other female genital organs; Z86.73 Personal history of transient ischemic attack (TIA), and cerebral infarction without residual deficits; Z88.6 Allergy status to analgesic agent; Z20.822 Contact with and (suspected) exposure to COVID-19
CPT/HCPCS: G0378; J1650

== ENCOUNTER 2024-08-01 22:09 | Emergency (ER) | payer SELFPAY ==
[~2024-08-01] VITALS: Ht 165.1 cm; Wt 122.0 kg
[~2024-08-01 22:09] MED LIST changes: +CYCLOBENZAPRINE10 MG PO
[2024-08-01] MEDS ORDERED: Pantoprazole Sodium 40 MG VIAL (Protonix) IV STA (22:28)
[2024-08-01] MEDS ORDERED: SODIUM CHLORIDE 0.9% 1,000 ML IV STA (22:28)
[2024-08-01] MEDS ORDERED: PROMETHAZINE HCL 25 MG/ML AMP IV ONE (22:30)
[2024-08-01] MEDS ORDERED: DICYCLOMINE HCL 20 MG/2 ML VIAL IM ONE (22:30)
[2024-08-01 22:56] LABS: BASO% 0.3 % (0-3); EOS% 1.6 % (0-8); HEMATOCRIT 40.4 % (37.0-47.0); HEMOGLOBIN 12.4 g/dl (12.0-16.0); IMMATURE GRANULOCYTES 0.2 % (0.0-5.0); LYMPH% 17.3 % (15-41); MEAN CELL VOLUME 78.4 fL CALC (80.0-100.0); MEAN CORPUSCULAR HGB 24.1 pG CALC (26.0-32.0); MEAN CORPUSCULAR HGB CONC 30.7 g/dL CAL (32.0-36.0); MONO% 5.7 % (2-13); NEUT# 8.69 thou/uL (2.00-7.15); NEUT% 74.9 % (42-76); RED BLOOD COUNT 5.15 mill/uL (4.20-5.60); RED CELL DISTRI WIDTH 15.8 % (11.5-15.5)
[2024-08-01 23:19] LABS: ALBUMIN 4.2 g/dL (3.2-5.0); BILIRUBIN, TOTAL 0.4 mg/dL (0.02-1.3); POTASSIUM 3.8 mmol/l (3.5-5.1); TOTAL PROTEIN 6.9 g/dL (6.3-8.2)
[2024-08-01 23:24] VITALS: BP 169/104
[2024-08-01 23:30] VITALS: BP 180/114
[2024-08-01 23:36] VITALS: BP 177/104
[2024-08-01 23:46] VITALS: BP 148/69
[2024-08-02 00:01] VITALS: BP 168/79
[2024-08-02] MEDS ORDERED: PROMETHAZINE HY25 M1 PO (01:27)
[2024-08-02] MEDS ORDERED: DICYCLOMINE HYD10 MG PO (01:27)
[2024-08-02 01:49] VITALS: BP 168/79
== END 2024-08-02 01:49 | disposition home or self-care (01) | DRG 392 ==
LOC: ED 22:09
PROVIDERS: Family Medicine
DX: A08.4 Viral intestinal infection, unspecified (principal); E11.9 Type 2 diabetes mellitus without complications; Z85.44 Personal history of malignant neoplasm of other female genital organs; Z92.21 Personal history of antineoplastic chemotherapy; Z92.3 Personal history of irradiation; Z20.822 Contact with and (suspected) exposure to COVID-19
CPT/HCPCS: J0500; J2470; J2550